=== PATIENT | female | born 1955 | race Two or more races ===

== ENCOUNTER → 2020-02-29 | Day surgery (SDC) | payer OTHER ==
[~2020-02-29] MED LIST: LOSARTAN-HCTZ1 EACH PO; METFORMIN HCL500 M3 PO
== END | disposition home or self-care (01) ==
LOC: ADM 02-22 07:00 → CIR.AMB 06:00
PROVIDERS: ATTEND Orthopaedic Surgery Sports Medicine
DX: M23.262 Derangement of other lateral meniscus due to old tear or injury, left knee (principal); M67.52 Plica syndrome, left knee; Z20.828 Contact with and (suspected) exposure to other viral communicable diseases

== ENCOUNTER 2021-10-22 09:49 | Emergency (ER) | payer OTHER ==
[~2021-10-22] VITALS: Ht 157.5 cm; Wt 83.9 kg
[2021-10-22] MEDS ORDERED: GABAPENTIN300 M2 PO (10:53)
[2021-10-22] MEDS ORDERED: TRAMADOL HCL50 MG PO (10:54)
[2021-10-22] MEDS ORDERED: CEFADROXIL500 MG PO (10:54)
== END 2021-10-22 13:13 | disposition home or self-care (01) ==
LOC: ER 09:49
DX: B34.9 Viral infection, unspecified (principal); M25.562 Pain in left knee; Z20.822 Contact with and (suspected) exposure to COVID-19

== ENCOUNTER 2023-08-21 13:30 | Emergency (ER) | payer OTHER ==
[~2023-08-21] VITALS: Ht 154.9 cm; Wt 90.7 kg
[~2023-08-21 13:30] MED LIST changes: +CEFADROXIL500 MG PO; +GABAPENTIN300 M2 PO; +TRAMADOL HCL50 MG PO
[2023-08-21] MEDS ORDERED: GUAIFENESIN 200 MG/10 ML BLIST.PACK PO ONE (14:15)
[2023-08-21] MEDS ORDERED: BENZONATATE 100 MG CAPSULE PO ONE (14:15)
[2023-08-21 14:37] LABS: HEMATOCRIT 36.5 % (36.0-45.00); HEMOGLOBIN 11.6 g/dL (12.0-15.00); MEAN CELL VOLUME 73.5 fL (80.00-100.00); MEAN CORPUSCULAR HEMOGLOBIN 23.4 pg (27.00-32.0); MEAN CORPUSCULAR HGB CONC 31.9 g/dl (32.0-36.0); PLATELET COUNT 310 K/uL (150-450); RED BLOOD COUNT 4.97 M/uL (4.00-6.00); RED CELL DISTRIBUTION WIDTH 15.9 % (11.5-14.5)
== END 2023-08-21 15:50 | disposition home or self-care (01) ==
LOC: ER 13:31
PROVIDERS: General Practice
DX: J40 Bronchitis, not specified as acute or chronic (principal); R50.9 Fever, unspecified; Z20.822 Contact with and (suspected) exposure to COVID-19; I10 Essential (primary) hypertension; E11.9 Type 2 diabetes mellitus without complications; Z79.84 Long term (current) use of oral hypoglycemic drugs

== ENCOUNTER 2024-02-26 13:09 | Emergency (ER) | payer OTHER ==
[~2024-02-26] VITALS: Ht 154.9 cm; Wt 86.2 kg
[2024-02-26] MEDS ORDERED: DEXAMETHASONE SODIUM PHOSPHATE 4 MG/ML VIAL IM STA (14:38)
[2024-02-26] MEDS ORDERED: ORPHENADRINE CITRATE 30 MG/ML AMPUL IM STA (14:38)
[2024-02-26 15:19] LABS: HEMATOCRIT 35.9 % (36.0-45.00); HEMOGLOBIN 11.4 g/dL (12.0-15.00); MEAN CELL VOLUME 74.2 fL (80.00-100.00); MEAN CORPUSCULAR HEMOGLOBIN 23.7 pg (27.00-32.0); MEAN CORPUSCULAR HGB CONC 31.9 g/dl (32.0-36.0); PLATELET COUNT 285 K/uL (150-450); RED BLOOD COUNT 4.84 M/uL (4.00-6.00); RED CELL DISTRIBUTION WIDTH 16.4 % (11.5-14.5)
[2024-02-26] MEDS ORDERED: NORFLEX100MG PO (18:24)
== END 2024-02-26 18:28 | disposition home or self-care (01) ==
LOC: ER 13:09
DX: M77.9 Enthesopathy, unspecified (principal)